=== PATIENT | female | born 2000 | race Caucasian/White ===

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

== ENCOUNTER 2021-07-23 10:00 | Inpatient (IN) | payer OTHER ==
[2021-07-24] MEDS ORDERED: ELECTROLYTE-148 SOLN 1,000 ML IV SCH (15:00)
[2021-07-24 15:37] VITALS: BMI 33.0
[2021-07-24] MEDS ORDERED: OXYTOCIN 20 UNITS in 0.9% NS 20 UNIT/1,000 ML INFUS.BAG IV ONE ×2 (15:55→18:21)
[2021-07-24] MEDS ORDERED: ONDANSETRON 4 MG/2 ML VIAL ONE (16:01)
[2021-07-24] MEDS ORDERED: SIMETHICONE 80 MG TAB.CHEW (FP) PO PRN (16:47)
[2021-07-24] MEDS ORDERED: oxyCODONE HCL 5 MG TABLET PO PRN (16:47)
[2021-07-24] MEDS ORDERED: IBUPROFEN 800 MG/8 ML IJ IVPB PRN (16:47)
[2021-07-24] MEDS ORDERED: SENNOSIDES/DOCUSATE COMBO (SENNA PLUS) TABLET (UD) PO PRN (16:47)
[2021-07-24] MEDS ORDERED: IBUPROFEN 600 MG TABLET (FP) PO PRN (16:47)
[2021-07-24] MEDS ORDERED: ACETAMINOPHEN 1000 MG/100 ML VIAL (NON FORMULARY) IVPB PRN (16:47)
[2021-07-24] MEDS ORDERED: ONDANSETRON 4 MG/2 ML VIAL IVPB PRN (16:47)
[2021-07-24] MEDS ORDERED: OXYTOCIN 20 UNITS in 0.9% NS 20 UNIT/1,000 ML INFUS.BAG IV SCH (17:00)
[2021-07-24] MEDS ORDERED: CITRIC ACID/SODIUM CITRATE 30 ML UNIT-DOSE CUP PO ONE (17:36)
[2021-07-25] MEDS: PRENATAL VITAMINS W/ FOLIC ACID TABLET (FP) PO SCH (09:03)
[2021-07-25 10:31] LABS: BASO % 0.3 % (0-2.0); EOS % 0.7 % (0-4.5); HEMATOCRIT 23.2 % (32.4-45.2); HEMOGLOBIN 8.1 GM/dL (10.7-15.3); LYMPH % 12.1 % (8-40); MCHC 35.2 g/dl (32.0-36.0); MEAN CELL VOLUME 93.9 fl (80-96); MEAN PLT VOLUME 8.3 fl (7.5-11.1); MONO % 4.6 % (3.8-10.2); NEUT % 82.3 % (42.8-82.8); PLATELET COUNT 284 10^3/uL (134-434); RBC 2.47 M/mm3 (3.60-5.2); RDW 12.7 % (11.6-15.6); WHITE BLOOD COUNT 9.9 K/mm3 (4.0-10.0)
[2021-07-25] MEDS ORDERED: ACETAMINOPHEN 325 MG TABLET (FP) PO PRN (16:47)
[2021-07-25] MEDS ORDERED: BISACODYL 10 MG SUPP.RECT RC PRN (16:47)
[2021-07-26] MEDS: PRENATAL VITAMINS W/ FOLIC ACID TABLET (FP) PO SCH (10:20)
[2021-07-26 10:42] VITALS: BP 106/65; PULSE 107; TEMP 98.5
== END 2021-07-26 15:45 | disposition home or self-care (01) | DRG 540 ==
LOC: JLDR 07-24 13:25 → J3W 07-24 20:07
PROVIDERS: ADMIT Specialist; ATTEND Specialist
PROC: 10D00Z1 Extraction of Products of Conception, Low, Open Approach (ICD-10-PCS; principal; 2021-07-24)
DX: O34.219 Maternal care for unspecified type scar from previous cesarean delivery (principal); O99.214 Obesity complicating childbirth; E66.9 Obesity, unspecified; N73.6 Female pelvic peritoneal adhesions (postinfective); Z3A.39 39 weeks gestation of pregnancy; Z37.0 Single live birth
CPT/HCPCS: 36415; 80053; 85025; 85027; 85610; 85730; 86850; 86900; 86901; C9803; U0003; U0005